=== PATIENT | male | born 1985 | race Caucasian/White ===

== ENCOUNTER 2023-06-07 19:27 | Emergency (ER) | payer SELFPAY ==
[2023-06-07] VITALS (8 sets, daily range): BP systolic 71–100; BP diastolic 39–68; PULSE 67–136; RESP 16–29; TEMP 36.6; O2SAT 91–100; BMI 33.5
[2023-06-07] MEDS: sodium chloride 0.9% 1,000 ML 100 ML IV (19:35)
[2023-06-07] MEDS: etomidate 2 mg/mL INJ SDV 10 mL 30 MG IVP (19:48)
[2023-06-07] MEDS: rocuronium 10 mg/mL INJ 5mL 150 MG IVP (19:48)
[2023-06-07] MEDS: midazolam 1 mg/mL INJ 2 mL 2 MG IVP (19:54)
[2023-06-07] MEDS: sodium chloride 0.9% (100 ml) 200 ML (20:00)
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
--- NOTE | 2023-06-07 21:00 | PC.NURSE ---
Intubation note 30mg of etmoidate given at 1948 150mg of Jaciel given at 1948 2mg of versed given at 1953 Patient intubated by . ETT 8.0 and 24 at teeth. bilateral breath sounds heard, positive color change on CO2 detector. Xray ordered and reviewed by .
--- NOTE | 2023-06-07 21:04 | PC.NURSE ---
Note Upon arrival patient was able to squeeze right hand upon request, patient was moaning in pain but could not open eyes. c-collar was placed at 1935. 18G R AC and 20 L FA initiated. NS fluids started at 100mls/hr at 1935, see MAR for more medication administrations. 2 units of emergency release blood given by rapid infuser and warmer, see TAR for more information.
--- NOTE | 2023-06-07 21:22 | PC.NURSE ---
BLOOD ADMIN 2 UNITS PRBC emergency release hung by Victor ManuelRN/BSN and OLIMPIA Millard via rapid infuser and blood warmer per MD order. first unit started at 1948 and completed at 1952. second unit started at 1954 and completed at 2005.
== END 2023-06-07 20:40 | disposition short-term general hospital (02) ==
PROVIDERS: Emergency Provider Emergency Medicine
DX: S01.01XA Laceration without foreign body of scalp, initial encounter (principal); V29.99XA Rider (driver) (passenger) of other motorcycle injured in unspecified traffic accident, initial encounter; S09.90XA Unspecified injury of head, initial encounter
CPT/HCPCS: 31500; 36430; 71045; 86850; 86900; 86920; 96361; 96374; 96375; 99285; 99291; J2250; J3010; J3490; J7030; J7050; P9016